=== PATIENT | male | born 1960 | race Caucasian/White ===

== ENCOUNTER → 2019-06-25 13:40 | Outpatient (CLI) | payer OTHER, SELFPAY ==
--- NOTE | 2019-06-25 | DI.MRI.S_ITS ---
PROCEDURE: MR LUMBAR SPINE WO CON INDICATIONS: LOW BACK PAIN TECHNIQUE: Noncontrast sagittal T1 spin echo and T2 fast echo, sagittal STIR, axial T1 and T2 fast spin echo through the lumbar spine. In cases with scoliosis, additional coronal T2 fast spin echo may be performed. COMPARISON: [facility], MR, MR LUMBAR SPINE WITHOUT CONTRAST, 09/27/2015, 16:33. [facility], MR, L-SPINE WITHOUT CONTRAST, 07/02/2011, 12:08. FINDINGS: Image quality: Excellent. Alignment and Curvature: There is normal bony alignment. Bone Marrow: Marrow is of normal overall signal. No acute vertebral body compression fractures. Spinal Cord: Conus medullaris terminates at the L2 level. Visualized cord demonstrates normal signal and size. Paraspinous Soft Tissues: No paravertebral masses. L1-L2: Normal appearance. L2-L3: Normal appearance. L3-L4: Small broad-based right paracentral disc protrusion with mild partial effacement of the right lateral recess. The left lateral recess appears patent. No left foraminal stenosis. Mild right foraminal narrowing with slight nerve root compression. This is slightly progressed on the right and unchanged on the left L4-L5: No high-grade central canal narrowing. Lateral recesses appear patent. No definite right foraminal stenosis. Moderate to severe left foraminal narrowing with nerve root compression. No interval change L5-S1: Minimal central canal narrowing. Lateral recesses appear patent. Moderate right foraminal stenosis with nerve root compression. Mild left foraminal narrowing with questionable nerve root compression. No interval change. IMPRESSION: Lower lumbar spondylosis and facet disease No high-grade central canal narrowing Diffuse, bilateral foraminal stenoses as detailed above by spinal level. Slight interval progression on the right at L3-L4 Dictated by: Gio Bates M.D. on 06/25/2019 at 17:04 Approved by: Gio Bates M.D. on 06/25/2019 at 17:14
== END ==
PROVIDERS: Visit Provider Physical Medicine & Rehabilitation
DX: M54.5 Low back pain (principal); M47.816 Spondylosis without myelopathy or radiculopathy, lumbar region; M48.061 Spinal stenosis, lumbar region without neurogenic claudication
CPT/HCPCS: 72148